=== PATIENT | male | born 1995 | race Caucasian/White ===

== ENCOUNTER 2016-12-07 20:24 | Inpatient (IN) | payer OTHER ==
[~2016-12-07] VITALS: Ht 182.9 cm; Wt 55.0 kg
--- NOTE | 2016-12-07 21:35 | DIAGNOSTIC IMAGING REPORT ---
CHEST ONE VIEW PORTABLE CLINICAL HISTORY: chest pain dyspnea COMPARISON STUDY: No previous studies for comparison. FINDINGS: Right-sided pneumothorax. Maximum pleural separation of the lower right apex at 3 cm No shift of the cardiomediastinal silhouette. Lungs otherwise appear clear. IMPRESSION: Right apical pneumothorax with a pleural separation of 3 cm. Electronically signed by: Adrian Baig M.D. 12/07/2016 9:34 PM Dictated Date/Time: 12/07/2016 9:33 PM
--- NOTE | 2016-12-07 22:05 | DIAGNOSTIC IMAGING REPORT ---
CHEST CT WITHOUT CONTRAST CT DOSE: 248.21 mGy.cm HISTORY: Pneumothorax eval of spontaneous pneumothorax TECHNIQUE: Multiaxial CT images of the chest were performed without contrast. COMPARISON: None. FINDINGS: The left lung is considered clear. No significant blebs are identified. There is approximately a 30-35% right-sided pneumothorax. Parenchymal pattern appears to be generally unremarkable. No major blebs within limitations of the a pneumothorax are present. There may be be a small bleb laterally best seen transaxial 16 Hilar and mediastinal regions are unremarkable. IMPRESSION: 1. 30-35% right-sided pneumothorax. 2. Possible very small bleb lateral aspect right pulmonary margin transaxial image 16 3. Otherwise negative study Electronically signed by: Adrian Baig M.D. 12/07/2016 10:04 PM Dictated Date/Time: 12/07/2016 10:01 PM
[2016-12-07] MEDS ORDERED: MoRPHine SULFATE 4 MG/ML 1 ML CARP\\VIAL IV STA (22:18)
[2016-12-07 22:26] LABS: BASO % 0.2 %; BASO ABS # 0.02 K/uL (0-0.2); COMPLETE YES; EOS % 0.3 %; HEMATOCRIT 41.4 % (42-52); IG% 0.2 %; LYMPH % 11.3 %; LYMPH ABS # 1.43 K/uL (1.2-3.4); MEAN CELL VOLUME 85.7 fL (80-100); MEAN CORPUSCULAR HEMOGLOBIN 31.1 pg (25-34); MEAN CORPUSCULAR HGB CONC 36.2 g/dl (32-36); MEAN PLATELET VOLUME 10.1 fL (7.4-10.4); MONO % 5.1 %; NEUT % 82.9 %; PLATELET COUNT 257 K/uL (130-400); RED BLOOD COUNT 4.83 M/uL (4.7-6.1); WHITE BLOOD COUNT 12.64 K/uL (4.8-10.8)
[2016-12-07] MEDS ORDERED: LORAZEPAM 2 MG/ML 1 ML VIAL IV STA (22:29)
[2016-12-07 22:36] LABS: INR 1.1 (0.9-1.1); PARTIAL THROMBOPLASTIN RATIO 0.9; PROTHROMBIN TIME (PATIENT) 11.8 SECONDS (9.0-12.0)
[2016-12-07 22:42] LABS: BLOOD UREA NITROGEN 16 mg/dl (7-18); CALCIUM 8.7 mg/dl (8.5-10.1); CARBON DIOXIDE 25 mmol/L (21-32); CHLORIDE 105 mmol/L (98-107); GLUCOSE 114 mg/dl (70-99); POTASSIUM 3.4 mmol/L (3.5-5.1); SODIUM 139 mmol/L (136-145)
[2016-12-07] MEDS ORDERED: ONDANSETRON INJ 2 MG/ML 2 ML VIAL IV PRN (23:30)
[2016-12-07] MEDS ORDERED: MoRPHine SULFATE 2 MG/ML CARP IV PRN (23:30)
[2016-12-07] MEDS ORDERED: HYDROCODONE/ACETAMOPHEN 5/325MG TAB PO PRN ×2 (23:30)
[2016-12-07] MEDS ORDERED: MoRPHine SULFATE 4 MG/ML 1 ML CARP\\VIAL IV PRN (23:30)
[2016-12-07] MEDS ORDERED: ACETAMINOPHEN 325 MG TAB PO PRN (23:30)
[2016-12-08] VITALS (13 sets, daily range): BP systolic 101–125; BP diastolic 58–82; PULSE 68–92; TEMP 36.5–37.2; O2SAT 96–100; Ht 182.9 cm; Wt 55.0 kg
--- NOTE | 2016-12-08 00:10 | EMERGENCY ROOM VISIT NOTE ---
History Report prepared by Laura: Sukumar Atwood Under the Supervision of: Dr. Danny Wu D.O. First contact with patient: 21:18 Chief Complaint: RIB PAIN Stated Complaint: FLANK PAIN/ SOB History of Present Illness The patient is a 21 year old male who presents to the Emergency Room with complaints of constant right sided rib pain beginning several hours prior to arrival. He describes the pain as pressure and currently rates his discomfort as a 4/10 in severity. The patient associates shortness of breath and a compression feeling in his right lung with today's symptoms. He states he was walking back from a debate convention, and he gradually felt increased pressure in his right chest and right rib area. The patient notes he got to a building where the paramedics came. He states at the building that he had a moment of dilated pupils and loss of vision, as well. The patient notes his pain is improving, but his discomfort worsens with movement. Source of History: patient Onset: several hours RN CLINICAL COORDINATOR Position: other (right sided rib) Symptom Intensity: 4/10 Quality: pressure Timing: constant Modifying Factors (Worsening): movement Associated Symptoms: + SOB, + chest pain (right sided pressure) Note: Associated symptoms: compression feeling in his right lung, resolved dilated pupils, resolved loss of vision. Review of Systems See HPI for pertinent positives & negatives. A total of 10 systems reviewed and were otherwise negative. Past Medical & Surgical Medical Problems: (1) No pertinent past medical history (2) Pneumonia (3) Pneumothorax Family History Patient reports no known family medical history. Social History Smoking Status: Never Smoker Housing Status: lives with roommate Occupation Status: [employer] student Current/Historical Medications No Active Prescriptions or Reported Meds Physical Exam Vital Signs Date Time Temp Pulse Resp B/P Pulse Ox O2 Delivery O2 Flow Rate FiO2 12/07/16 23:53 96 16 113/55 100 Nasal Cannula 2.0 12/07/16 23:01 111 20 129/80 100 Nasal Cannula 2.0 12/07/16 23:00 Nasal Cannula 2.0 12/07/16 22:45 121 20 132/60 99 Room Air 12/07/16 22:43 116 12/07/16 22:30 121 20 119/75 98 Room Air 12/07/16 20:34 36.8 80 18 132/71 100 Room Air Physical Exam CONSTITUTIONAL/VITAL SIGNS: Reviewed / noted above. GENERAL: Non-toxic in appearance. INTEGUMENTARY: Warm, dry, and [place]. HEAD: Normocephalic. EYES: without scleral icterus or trauma. ENT/OROPHARYNX: clear and moist. LYMPHADENOPATHY/NECK: Is supple without lymphadenopathy or meningismus. RESPIRATORY: Lungs clear and equal. CARDIOVASCULAR: Regular rate and rhythm. GI/ABDOMEN: Soft and nontender. No organomegaly or pulsatile mass. No rebound or guarding. Normal bowel sounds. EXTREMITIES: Warm and well perfused. BACK: No CVA tenderness. NEUROLOGICAL: Intact without focal deficits. PSYCHIATRIC: normal affect. MUSCULOSKELETAL: Normally developed with good muscle tone. Medical Decision & Procedures ER Provider Diagnostic Interpretation: Radiology results as stated below per my review and radiologist interpretation: CHEST ONE VIEW PORTABLE CLINICAL HISTORY: chest pain dyspnea COMPARISON STUDY: No previous studies for comparison. FINDINGS: Right-sided pneumothorax. Maximum pleural separation of the lower right apex at 3 cm No shift of the cardiomediastinal silhouette. Lungs otherwise appear clear. IMPRESSION: Right apical pneumothorax with a pleural separation of 3 cm. Electronically signed by: Adrian Baig M.D. 12/07/2016 9:[address] WITHOUT [address]AST CT DOSE: 248.21 mGy.cm HISTORY: Pneumothorax eval of spontaneous pneumothorax TECHNIQUE: Multiaxial CT images of the chest were performed without contrast. COMPARISON: None. FINDINGS: The left lung is considered clear. No significant blebs are identified. There is approximately a 30-35% right-sided pneumothorax. Parenchymal pattern appears to be generally unremarkable. No major blebs within limitations of the a pneumothorax are present. There may be be a small bleb laterally best seen transaxial 16 Hilar and mediastinal regions are unremarkable. IMPRESSION: 1. 30-35% right-sided pneumothorax. 2. Possible very small bleb lateral aspect right pulmonary margin transaxial image 16 3. Otherwise negative study Electronically signed by: Adrian Baig M.D. 12/07/2016 10:04 PM X ray results and stated below per my interpretation.' CXR Post Tube Thoracostomy The lung appears to be reexpanded. No obvious residual pneumothorax. Small kink in the catheter exterior to the chest wall was addressed. Laboratory Results 12/07/16 22:00 Red Blood Count 4.83, Mean Corpuscular Volume 85.7, Mean Corpuscular Hemoglobin 31.1, Mean Corpuscular Hemoglobin Concent 36.2, Mean Platelet Volume 10.1, Neutrophils (%) (Auto) 82.9, Lymphocytes (%) (Auto) 11.3, Monocytes (%) (Auto) 5.1, Eosinophils (%) (Auto) 0.3, Basophils (%) (Auto) 0.2, Neutrophils # (Auto) 10.47, Lymphocytes # (Auto) 1.43, Monocytes # (Auto) 0.65, Eosinophils # (Auto) 0.04, Basophils # (Auto) 0.02 12/07/16 22:00 Test 12/07/16 22:00 White Blood Count 12.64 K/uL (4.8-10.8) Red Blood Count 4.83 M/uL (4.7-6.1) Hemoglobin 15.0 g/dL (14.0-18.0) Hematocrit 41.4 % (42-52) Mean Corpuscular Volume 85.7 fL (80-100) Mean Corpuscular Hemoglobin 31.1 pg (25-34) Mean Corpuscular Hemoglobin Concent 36.2 g/dl (32-36) Platelet Count 257 K/uL (130-400) Mean Platelet Volume 10.1 fL (7.4-10.4) Neutrophils (%) (Auto) 82.9 % Lymphocytes (%) (Auto) 11.3 % Monocytes (%) (Auto) 5.1 % Eosinophils (%) (Auto) 0.3 % Basophils (%) (Auto) 0.2 % Neutrophils # (Auto) 10.47 K/uL (1.4-6.5) Lymphocytes # (Auto) 1.43 K/uL (1.2-3.4) Monocytes # (Auto) 0.65 K/uL (0.11-0.59) Eosinophils # (Auto) 0.04 K/uL (0-0.5) Basophils # (Auto) 0.02 K/uL (0-0.2) RDW Standard Deviation 39.2 fL (36.4-46.3) RDW Coefficient of Variation 12.4 % (11.5-14.5) Immature Granulocyte % (Auto) 0.2 % Immature Granulocyte # (Auto) 0.03 K/uL (0.00-0.02) Prothrombin Time 11.8 SECONDS (9.0-12.0) Prothromb Time International Ratio 1.1 (0.9-1.1) Activated Partial Thromboplast Time 23.7 SECONDS (21.0-31.0) Partial Thromboplastin Ratio 0.9 Anion Gap 9.0 mmol/L (3-11) Est Creatinine Clear Calc Drug Dose 91.7 ml/min Estimated GFR () 125.0 Estimated GFR (Non- 107.9 BUN/Creatinine Ratio 16.0 (10-20) Calcium Level 8.7 mg/dl (8.5-10.1) Troponin I < 0.015 ng/ml (0-0.045) Laboratory results as stated above per my review. Medications Administered Medications (Trade) Dose Ordered Sig/Jacqueline Route Start Time Stop Time Status Last Admin Dose Admin Morphine Sulfate (MoRPHine SULFATE INJ) 4 mg NOW STAT IV 12/07/16 22:18 12/07/16 22:19 DC 12/07/16 22:24 4 MG Lorazepam (Ativan Inj) 1 mg NOW STAT IV 12/07/16 22:29 12/07/16 22:30 DC 12/07/16 22:33 1 MG Procedure Tube Thoracostomy Indication: Pneumothorax Written consent was obtained after the risks and benefits were explained, including but not limited to cardiac/liver/lung injury, bleeding, scarring, infection, pain, and bone/joint/nerve damage. At this time, the risks of the procedure are less than the risks of NOT performing the procedure. A time out was taken and the correct patient and site identified. The patient was prepped and draped in the standard surgical fashion. 1% lidocaine without epinephrine was infused over the fourth intercostal space into the subcutaneous tissue. A 3 cm incision was made transversely in the mid axillary line over the fifth intercostal rib. Blunt dissection was done with a Mattie clamp to the area of the intercostal muscles; 1% lidocaine again was used for anesthesia in intercostal muscle and subpleural space. Blunt dissection was then done with the Mattie clamps into the pleural cavity over the rib. A small amount of air was noted upon entering the pleural cavity. The pleural cavity was digitally inspected to confirm that the pleural cavity had been entered. A 8.5 Indian thoracostomy tube was inserted in the superior/posterior portion of the pleural space. 1-0 silk suture was used to approximate the skin above the thoracostomy tube and then used to secure the thoracostomy tube. An occlusive dressing was then placed and the thoracostomy tube was hooked to the Pleur-evac suction. The patient tolerated the procedure well without complications. A postoperative x- ray was then performed which showed the thoracostomy tube in the correct position. ECG Indication: chest pain Rate (beats per minute): 73 Rhythm: normal sinus Findings: no ectopy, other (no acute injury) ED Course 2125: Previous medical records were reviewed. The patient was evaluated in room C11B. A complete history and physical examination was performed. 8: Ordered Morphine Sulfate 4 mg IV. 9: Ordered Ativan Inj 1 mg IV. 2310: I spoke to ECTOR Chaney (General Surgery) about the patient's case, and he will follow the patient for further evaluation. Medical Decision the differential was considered includes acute myocardial infarction, acute coronary syndrome, myocarditis, pericarditis, pericardial effusions /tamponade, esophageal perforation, pulmonary embolism, pneumonia, pneumothorax, cardiomyopathy, congestive heart, anemia , COPD/asthma exacerbation. This is a 21-year-old male who presents to the ED with a chief complaint of sudden right-sided chest pain while he was walking. He denies any past medical history. A chest x-ray reveals a right-sided pneumothorax. A CT scan of the chest reveals a 35% pneumothorax on the right with a small bleb. The patient reports right-sided chest pain is also a little shortness of breath. After written and verbal consent was obtained, the patient had a right-sided pigtail catheter chest tube placed with expansion of the pneumothorax. He tolerated the procedure well and had no complications. He was given morphine IV for discomfort and a milligram of IV Ativan for anxiety during his stay. I spoke with Dr. Loja who will admit the patient for continued inpatient care. Consults Time Called: [id number] Consulting Physician: ECTOR Chaney (General Surgery) Returned Call: [phone] I spoke to ECTOR Chaney (General Surgery) about the patient's case, and he will follow the patient for further evaluation. Impression Primary Impression: Pneumothorax, right Additional Impression: Spontaneous pneumothorax Scribe Attestation The scribe's documentation has been prepared under my direction and personally reviewed by me in its entirety. I confirm that the note above accurately reflects all work, treatment, procedures, and medical decision making performed by me. Departure Information Dispostion Being Evaluated [place] Surgeon [place] [facility] [place] Prescriptions No Active Prescriptions or Reported Meds Referrals No Doctor, Assigned (PCP) Problem Qualifiers
[2016-12-08] MEDS ORDERED: PATIENT'S ALLERGY INFO NEEDS ENTERED SCH (00:30)
--- NOTE | 2016-12-08 06:01 | DIAGNOSTIC IMAGING REPORT ---
CHEST ONE VIEW PORTABLE CLINICAL HISTORY: post chest tube pneumothorax COMPARISON STUDY: Several images same date FINDINGS: Placement of a small caliber right-sided chest tube. A very small residual right apical pneumothorax. Lungs otherwise are clear. IMPRESSION: Small caliber right chest tube placement. Very small residual right apical pneumothorax with a maximum pleural separation of 4 mm. Electronically signed by: Adrian Baig M.D. 12/08/2016 6:00 AM Dictated Date/Time: 12/08/2016 5:59 AM
--- NOTE | 2016-12-08 07:03 | DIAGNOSTIC IMAGING REPORT ---
CHEST ONE VIEW PORTABLE CLINICAL HISTORY: pneumothorax dyspnea COMPARISON STUDY: 12/07/2016 FINDINGS: Small caliber right chest tube in position. Very minimal residual right apical pneumothorax. Pleural separation remains at 4 mm. Lungs otherwise are clear. IMPRESSION: Minimal residual right apical pneumothorax. Maximum pleural separation remains at 4 mm. Electronically signed by: Adrian Baig M.D. 12/08/2016 7:02 AM Dictated Date/Time: 12/08/2016 7:01 AM
[2016-12-08] MEDS: IBUPROFEN 600 MG TAB PO PRN ×2 (07:14→15:35)
--- NOTE | 2016-12-08 09:27 | History and Physical ---
History & Physical Date & Time of Service: Dec 08, 2016 at 09:25 Chief Complaint: Pneumothorax Primary Care Physician: No Doctor, Assigned History of Present Illness pt with spontaneous right chest pain/sob. found to have incidental ptx. no trauma. Past Medical/Surgical History Medical Problems: (1) Pneumonia Status: Resolved Family History Patient reports no known family medical history. Social History Smoking Status: Never Smoker Occupational Status: [employer] student Allergies Coded Allergies: Cat Dander (Unverified Allergy, Mild, RASH, 12/08/16) pt states reddened and watery eyes Dog Dander (Unverified Allergy, Mild, RASH, 12/08/16) pt states reddened and watery eyes POLLEN (Unverified Allergy, Mild, RASH, 12/08/16) pt states reddened and watery eyes Home Medications No Active Prescriptions or Reported Meds Review of Systems Respiratory: + cough, + shortness of breath Physical Exam Vital Signs Date Time Temp Pulse Resp B/P Pulse Ox O2 Delivery O2 Flow Rate FiO2 12/08/16 07:35 37.1 87 14 108/68 96 Room Air 12/08/16 07:15 100 Room Air 12/08/16 03:02 36.8 70 17 125/64 99 Nasal Cannula 2.0 12/08/16 02:28 37.2 92 16 105/58 100 Nasal Cannula 2.0 12/08/16 01:22 37.2 86 16 122/82 100 Nasal Cannula 2.0 12/08/16 01:03 100 Nasal Cannula 2.0 12/08/16 00:50 37.2 68 16 118/61 100 Nasal Cannula 2.0 12/08/16 00:20 Nasal Cannula 2.0 12/08/16 00:20 37.1 89 16 106/61 100 Nasal Cannula 2.0 12/08/16 00:20 100 Nasal Cannula 2.0 12/07/16 23:53 96 16 113/55 100 Nasal Cannula 2.0 12/07/16 23:01 111 20 129/80 100 Nasal Cannula 2.0 12/07/16 23:00 Nasal Cannula 2.0 12/07/16 22:45 121 20 132/60 99 Room Air 12/07/16 22:43 116 12/07/16 22:30 121 20 119/75 98 Room Air 12/07/16 20:34 36.8 80 18 132/71 100 Room Air General Appearance: no apparent distress Head: normocephalic, atraumatic Eyes: PERRL, EOMI ENT: hearing grossly normal Neck: supple, no adenopathy Respiratory/Chest: normal breath sounds Abdomen/GI: non tender, soft Extremities/Musculoskelatal: no pedal edema Neurologic/Psych: alert, oriented x 3 Skin: normal color, warm/dry Diagnostics Laboratory Results Results Past 24 Hours Test 12/07/16 22:00 Range/Units White Blood Count 12.64 4.8-10.8 K/uL Red Blood Count 4.83 4.7-6.1 M/uL Hemoglobin 15.0 14.0-18.0 g/dL Hematocrit 41.4 42-52 % Mean Corpuscular Volume 85.7 80-100 fL Mean Corpuscular Hemoglobin 31.1 25-34 pg Mean Corpuscular Hemoglobin Concent 36.2 32-36 g/dl Platelet Count 257 130-400 K/uL Mean Platelet Volume 10.1 7.4-10.4 fL Neutrophils (%) (Auto) 82.9 % Lymphocytes (%) (Auto) 11.3 % Monocytes (%) (Auto) 5.1 % Eosinophils (%) (Auto) 0.3 % Basophils (%) (Auto) 0.2 % Neutrophils # (Auto) 10.47 1.4-6.5 K/uL Lymphocytes # (Auto) 1.43 1.2-3.4 K/uL Monocytes # (Auto) 0.65 0.11-0.59 K/uL Eosinophils # (Auto) 0.04 0-0.5 K/uL Basophils # (Auto) 0.02 0-0.2 K/uL RDW Standard Deviation 39.2 36.4-46.3 fL RDW Coefficient of Variation 12.4 11.5-14.5 % Immature Granulocyte % (Auto) 0.2 % Immature Granulocyte # (Auto) 0.03 0.00-0.02 K/uL Prothrombin Time 11.8 9.0-12.0 SECONDS Prothromb Time International Ratio 1.1 0.9-1.1 Activated Partial Thromboplast Time 23.7 21.0-31.0 SECONDS Partial Thromboplastin Ratio 0.9 Sodium Level 139 136-145 mmol/L Potassium Level 3.4 3.5-5.1 mmol/L Chloride Level 105 98-107 mmol/L Carbon Dioxide Level 25 21-32 mmol/L Anion Gap 9.0 3-11 mmol/L Blood Urea Nitrogen 16 7-18 mg/dl Creatinine 1.00 0.60-1.40 mg/dl Est Creatinine Clear Calc Drug Dose 91.7 ml/min Estimated GFR () 125.0 Estimated GFR (Non- 107.9 BUN/Creatinine Ratio 16.0 10-20 Random Glucose 114 70-99 mg/dl Calcium Level 8.7 8.5-10.1 mg/dl Troponin I < 0.015 0-0.045 ng/ml other (pneumothorax/small bleb) Impression Assessment and Plan 1. spontaneous pneumothorax/small bleb clinically doing ok continues to have small apical ptx chest tube to 20 cm wall suction recheck cxr tomorrow continue wall suction for now. Advanced Directives Existing Living Will: No Existing Power of Community Ambassador: No VTE Prophylaxis VTE Risk Assessment Done? Y/N: Yes Risk Level: Low
[2016-12-09] VITALS (10 sets, daily range): BP systolic 106–137; BP diastolic 58–80; PULSE 69–100; TEMP 36.5–37.2; O2SAT 94–100
--- NOTE | 2016-12-09 07:30 | DIAGNOSTIC IMAGING REPORT ---
CHEST ONE VIEW PORTABLE CLINICAL HISTORY: pneumothorax COMPARISON STUDY: 12/08/2016 FINDINGS: Lungs are clear. No residual pneumothorax. Right-sided small caliber chest tube in position laterally IMPRESSION: No evidence for residual pneumothorax Electronically signed by: Adrian Baig M.D. 12/09/2016 7:29 AM Dictated Date/Time: 12/09/2016 7:28 AM
[2016-12-09] MEDS ORDERED: ROCURONIUM BROMIDE 10 MG/ML 5 ML VIAL ONE (10:55)
[2016-12-09] MEDS ORDERED: PROPOFOL IV EMULSION 10 MG/ML 20 ML VIAL IV ONE ×2 (10:55→12:23)
[2016-12-09] MEDS ORDERED: ONDANSETRON INJ 2 MG/ML 2 ML VIAL ONE ×2 (10:55→12:23)
[2016-12-09] MEDS ORDERED: NEOSTIGMINE METHYLSULFATE 5 MG/5 ML SYR ONE (10:55)
[2016-12-09] MEDS ORDERED: GLYCOPYRROLATE INJ 0.2 MG/ML VIAL ONE ×2 (10:55→12:53)
[2016-12-09] MEDS ORDERED: MIDAZOLAM HCL 1 MG/ML 2ML VIAL ONE (10:55)
[2016-12-09] MEDS ORDERED: LIDOCAINE HCL 2% 2 ML VIAL (20MG/ML) ONE (10:55)
[2016-12-09] MEDS ORDERED: DEXAMETHASONE SOD INJ 4 MG/ML VIAL ONE (10:55)
[2016-12-09] MEDS ORDERED: FENTANYL CITRATE INJ 50 MCG/1 ML 2 ML VIAL ONE ×2 (10:55→12:23)
--- NOTE | 2016-12-09 11:01 | History & Physical Bridge Note ---
H&P Re-Evaluation Bridge Note: I have examined the patient, reviewed the History & Physical and in the interval since the performance of the History & Physical I have noted the following changes of clinical significance: No changes noted
[2016-12-09] MEDS ORDERED: SODIUM CHLORIDE 0.9% PF 50 ML VIAL ONE (11:07)
[2016-12-09] MEDS ORDERED: BUPIVACAINE LIPOSOME 1/3% 266 MG/20 ML VIAL INFIL ONE (11:07)
[2016-12-09] MEDS ORDERED: LABETALOL HCL IV 5 MG/ML 20ML IV PRN (11:30)
[2016-12-09] MEDS ORDERED: MEPERIDINE HCL 25 MG/ML CARP IV PRN (11:30)
[2016-12-09] MEDS ORDERED: ONDANSETRON INJ 2 MG/ML 2 ML VIAL IV PRN ×2 (11:30→13:15)
[2016-12-09] MEDS ORDERED: EpHEDrine SULFATE INJ 50 MG/ML AMP IV PRN (11:30)
[2016-12-09] MEDS ORDERED: HYDROmorphone INJ 1 MG/ML SYR IV PRN (11:30)
[2016-12-09] MEDS ORDERED: FENTANYL CITRATE INJ 50 MCG/1 ML 2 ML VIAL IV PRN (11:30)
[2016-12-09] MEDS ORDERED: ATROPINE SULFATE 0.1 MG/ML 5ML SYR IV PRN (11:30)
[2016-12-09] MEDS ORDERED: LARYING-O-JET KIT (LTA) EXT ONE ×2 (12:24)
[2016-12-09] MEDS ORDERED: OXYCODONE HCL IR 5 MG TAB (IMMEDIATE RELEASE) PO PRN (13:15)
[2016-12-09] MEDS ORDERED: MoRPHine SULFATE 2 MG/ML CARP IV PRN (13:15)
--- NOTE | 2016-12-09 13:53 | DIAGNOSTIC IMAGING REPORT ---
CHEST ONE VIEW PORTABLE HISTORY: s/p bleb stapling COMPARISON: Chest 12/09/2016. FINDINGS: The right-sided pleural pigtail catheter has been replaced with a right-sided chest tube. Right lung apex debbie are noted. There is a small right apical pneumothorax with a pleural gap of 1 cm. This has increased in size. Patchy density within the right lung apex medially may be due to postoperative change. The left lung is clear. The heart is normal in size. No pleural effusions. IMPRESSION: Right-sided chest tube terminates in the right lung apex. There is a small right apical pneumothorax. Electronically signed by: Jj Medina M.D. 12/09/2016 1:52 PM Dictated Date/Time: 12/09/2016 1:50 PM
[2016-12-09] MEDS ORDERED: CEFAZOLIN SOD 2000 MG in DEXTROSE 5% 50ML IV SCH (14:00)
[2016-12-09] MEDS ORDERED: CEFAZOLIN IV 2,000 MG in DEXTROSE 5% 50ML 100 ML IV SCH (14:00)
--- NOTE | 2016-12-09 14:00 | Anesthesiology Progress Note ---
Anesthesia Post Op Note Date & Time Dec 09, 2016 at 14:00 Vital Signs Pain Intensity: 0 Vital Signs Past 12 Hours Date Time Temp Pulse Resp B/P Pulse Ox O2 Delivery O2 Flow Rate FiO2 12/09/16 13:55 78 18 142/82 100 Nasal Cannula 2 12/09/16 13:45 94 21 131/79 100 Mask 10 12/09/16 13:35 101 21 131/81 100 Mask 10 12/09/16 13:28 36.0 76 15 126/79 100 Mask 10 12/09/16 11:10 36.9 83 16 138/73 100 Room Air 12/09/16 08:41 100 Room Air 12/09/16 07:45 36.5 69 14 112/66 100 Room Air 12/09/16 07:15 Room Air Notes Mental Status: alert / awake / arousable, participated in evaluation Pt Amnestic to Procedure: Yes Nausea / Vomiting: adequately controlled Pain: adequately controlled Airway Patency, RR, SpO2: stable & adequate BP & HR: stable & adequate Hydration State: stable & adequate Anesthetic Complications: no major complications apparent
[2016-12-09] MEDS: D5W AND 1/2NSS 1,000 ML IV SCH ×2 (14:30→23:41)
[2016-12-09] MEDS: KETOROLAC TROMETHAMINE 15 MG/ML VIAL IV. SCH ×2 (14:37→21:31)
[2016-12-09] MEDS: METOCLOPRAMIDE HCL INJ 5 MG/ML 2 ML VIAL IV. SCH ×2 (14:38→21:31)
--- NOTE | 2016-12-09 14:59 | SURGICAL CONSULTATION ---
DATE OF CONSULTATION: 12/09/2016 REASON FOR CONSULTATION: Spontaneous right pneumothorax with blebs. 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 This happened yesterday and he was admitted to Dr. Ton Loja's service. Dr. Young placed a small catheter in the patient's chest; however, he still has a small pneumothorax. I do not see an air leak. 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 I was asked to evaluate him from a thoracic surgery standpoint. The patient really has no other medical problems. He is physically active. He has never smoked. His family lives in [place], [place]. His mother is a family service caseworker there. PAST MEDICAL HISTORY: Pneumonia in the past. PAST SURGICAL HISTORY: None. MEDICATIONS: None. ALLERGIES: No known drug allergies. SOCIAL HISTORY: The patient will be graduating in August with a degree in [employer]. He does not smoke or use alcohol. FAMILY MEDICAL HISTORY: There is no history of spontaneous pneumothorax or pulmonary problems in his history. REVIEW OF SYSTEMS: Upon the time this occurred, the patient was fine. He had no night sweats. No productive cough. No upper respiratory infection symptoms. He had not been traveling recently in a plane. He had not been diving. He knows no trauma associated with this. He had no GI or complaints. He has no hearing or visual abnormalities. He had no neurologic events and had no skin breakdown. However, he did have coughing when this happened, had pressure in his right chest, which he tends to be understanding today, although his mother states he is very stoic and this is the "worse pain he ever had". PHYSICAL EXAMINATION: GENERAL: This is a 6 feet 1 inch and 120-pound male who is awake, alert, oriented. HEENT: His extraocular movements are intact. His pupils are equal, round and reactive. Sclerae are anicteric. He has no nasolabial flattening. His tongue is midline. Teeth are in good repair. NECK: Supple. He has no tracheal shifting or neck vein distention. He has no thyromegaly. LUNGS: He did have decreased breath sounds a bit more on the right, especially in the anterior upper portion of his chest than the left. HEART: He has a regular rate and rhythm of his heart. ABDOMEN: Flat, soft, nontender with no surgical incisions. Good femoral and good peripheral pulses. He has no joint effusions. NEUROLOGIC: He is awake, alert and oriented. ASSESSMENT: He has spontaneous pneumothorax with small blebs in the right apex. PLAN: Right thoracoscopy with apical bleb resection. DISCUSSION: I had a long talk with the patient's mother who has a medical background as well as the patient. He is an intelligent young man and asked pointed questions. We discussed risk and benefits and also alternative treatment measures such as observation; however, the fact that matter is the patient is able to speak Pal[place]an and Nepalese and will be doing quite a bit of flying in the future. We discussed this and my concerns about nonoperative management. He has a small bleb on the right with one small subcentimeter bleb posteriorly. There is also another one more superior. At any rate, with the blebs noted on the right, I think offering him a thoracoscopy is indicated. We will proceed with this later today.
[2016-12-09] MEDS: ACETAMINOPHEN IV 1,000 MG in EMPTY BAG 0 ML IV SCH ×2 (15:42→23:40)
--- NOTE | 2016-12-09 16:19 | OPERATIVE REPORT ---
DATE OF OPERATION: 12/09/2016 PREOPERATIVE DIAGNOSES: 1. Spontaneous pneumothorax. 2. Apical blebs. POSTOPERATIVE DIAGNOSES: 1. Same. 2. Bleb superior segment, right lower lobe. SURGEON: Kehinde Marsh MD CANDLE MOLDER: ELIZABETH Morris PROCEDURES: Right thoracoscopy with wedge resection of right apex and superior segment right lower lobe. ANESTHESIA: General anesthesia endotracheal intubation. 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 He had a chest tube in place with a small leak this morning. His lung was expanded, but the CT scan showed he did have some apical blebs. I did not see one in the superior segment of the right lower lobe and a small on the left. I had a long discussion with the patient and his mother who is a nurse. We discussed in detail conservative management versus surgical management with stapling of the apical blebs. They discussed it among themselves and called back that they would like to proceed with surgery. In the early afternoon of 12/09/2016, the patient underwent an uncomplicated thoracoscopy. We did CO2 insufflation with a single lumen tube and used two 5 mm ports and 12 mm port. He tolerated it well with no air leak at the conclusion of the case. The only thing of note is that we did see some small bullae/blebs on the superior segment of the right lower lobe which were wedged out. The patient had no air leak at the conclusion of the case. DESCRIPTION OF PROCEDURE: The patient was brought to the operating room and laid in supine position. General anesthesia induced and endotracheal intubation was performed with a single lumen tube. There was no arterial line and no Lopez catheter. The patient was placed in left lateral decubitus position. We used a very small volumes and I removed his pigtail catheter. He was prepped and draped in usual sterile fashion after appropriate timeout had been called and antibiotics and given, I made a 5 mm incision in the area of his pigtail catheter. A 5 mm port was then placed and CO2 was insufflated. Likewise, posteriorly in the auscultatory triangle, I placed another 5 mm port. I then at about the seventh interspace just anterior to the mid axillary line about 12 mm incision was made and 12 mm port was placed. There was a single adhesion which was lysed using a hooked cautery. The apex did look abnormal. I grasped this and fired and removed the abnormal area by firing Endo-MIRIAM stapler several times and pulling this rather long but thin portion out. I then closely inspected the lung and saw the bulla in the superior segment of the lower lobe and wedged out a very small area here of the lung and handed off. We then placed the patient in Trendellenberg position, filled the chest with saline and inflated the lung and I simply did not see any leaking. A 266 mg of Exparel, 60 mL of normal saline injected for an intercostal block intrathoracically under thoracoscopic guidance from the 2nd to the 11th rib. We did this above the rib to avoid bleeding. A 24-Swedish chest tube was then directed towards the apex to the 7th interspace incision. This was held in place with heavy silk suture. A single heavy Vicryl suture was used to close the muscle layer of this 12 mm incision. A 4-0 Monocryl was used to close the skin of all 3 thoracoscopy ports. He tolerated it well, was extubated in the room with negligible blood loss. I attest to the content of the Intraoperative Record and any orders documented therein. Any exceptio ns are noted below.
[2016-12-09] MEDS: DOCUSATE SODIUM 100 MG CAP PO SCH (21:30)
[2016-12-10 04:12] VITALS: BP 104/64; PULSE 85; TEMP 36.9; O2SAT 95
[2016-12-10] MEDS: KETOROLAC TROMETHAMINE 15 MG/ML VIAL IV. SCH ×2 (05:34→14:22)
[2016-12-10] MEDS: METOCLOPRAMIDE HCL INJ 5 MG/ML 2 ML VIAL IV. SCH (05:34)
[2016-12-10 07:07] VITALS: BP 113/72; PULSE 80; TEMP 36.9; O2SAT 97
--- NOTE | 2016-12-10 07:27 | DIAGNOSTIC IMAGING REPORT ---
CHEST ONE VIEW PORTABLE CLINICAL HISTORY: s/p bleb stapling pneumothorax COMPARISON STUDY: 12/09/2016 FINDINGS: Small right apical pneumothorax slightly increased in volume from the prior study. Maximum apical pleural separation is 2.6 cm. Lungs otherwise are clear. Message chest tube is unchanged in location. IMPRESSION: Small right apical pneumothorax slightly increased in pleural separation compared to the prior study Electronically signed by: Adrian Baig M.D. 12/10/2016 7:26 AM Dictated Date/Time: 12/10/2016 7:25 AM
[2016-12-10] MEDS: IBUPROFEN 600 MG TAB PO PRN (07:44)
[2016-12-10] MEDS: ACETAMINOPHEN IV 1,000 MG in EMPTY BAG 0 ML IV SCH (07:44)
--- NOTE | 2016-12-10 07:59 | Anesthesiology Progress Note ---
Anesthesia Post Op Note Date & Time Dec 10, 2016 at 07:59 Vital Signs Pain Intensity: 4.0 Vital Signs Past 12 Hours Date Time Temp Pulse Resp B/P Pulse Ox O2 Delivery O2 Flow Rate FiO2 12/10/16 07:07 36.9 80 18 113/72 97 Room Air 12/10/16 04:12 36.9 85 16 104/64 95 Room Air 12/09/16 23:45 Room Air 12/09/16 23:08 36.9 94 16 117/70 96 Room Air 12/09/16 21:30 37.2 88 16 137/58 95 Room Air 12/09/16 20:00 Room Air Notes Mental Status: alert / awake / arousable, participated in evaluation Pt Amnestic to Procedure: Yes Nausea / Vomiting: adequately controlled Pain: adequately controlled Airway Patency, RR, SpO2: stable & adequate BP & HR: stable & adequate Hydration State: stable & adequate Anesthetic Complications: no major complications apparent
[2016-12-10] MEDS ORDERED: ENOXAPARIN 40 MG/0.4 ML SYR SQ SCH (09:00)
[2016-12-10] MEDS: DOCUSATE SODIUM 100 MG CAP PO SCH (09:17)
[2016-12-10] MEDS ORDERED: CEFAZOLIN SOD 1 GM VIAL ONE (10:25)
[2016-12-10 12:07] VITALS: BP 121/64; PULSE 81; TEMP 37; O2SAT 96
[2016-12-10] MEDS ORDERED: CLC100 PO (13:13)
[2016-12-10] MEDS ORDERED: MTR600X PO (13:13)
[2016-12-10] MEDS ORDERED: OXYC-57 PO (13:13)
[2016-12-10] MEDS ORDERED: TYL325X PO (13:13)
--- NOTE | 2016-12-10 13:17 | Discharge Instructions ---
Discharge Instructions Date of Service Dec 10, 2016. Admission Reason for Admission: Pneumothorax Discharge Discharge Diagnosis / Problem: Pneumothorax Discharge Goals Goal(s): Decrease discomfort, Learn about illness Activity Recommendations Activity Limitations: as noted below Lifting Limitations: none 1. Do not fly or SCUBA dive until cleared to do so by Dr. Marsh. 2. Leave dressing on for 3 days, then you may shower and clean incisions with soap and water. No tub baths. 3. Do not take tylenol if taking percocet. 4. Do not drive if taking percocet. . Instructions / Follow-Up Instructions / Follow-Up 1. Office appointment with Dr. Marsh in 1 week. Office will call you with date and time of appointment. You will need a chest x-ray prior to appointment (you may get x-ray the day before appointment if necessary) Current Hospital Diet Patient's current hospital diet: Regular Diet Discharge Diet Recommended Diet: Regular Diet Procedures Procedures Performed: Right Video Assisted Thoracoscopy with Bleb Resection Pending Studies Studies pending at discharge: no Medical Emergencies . Who to Call and When: Medical Emergencies: If at any time you feel your situation is an emergency, please call 911 immediately. . Non-Emergent Contact Non-Emergency issues call your: Surgeon Call Non-Emergent contact if: you have a fever, your pain is not controlled, wound has increased drainage . "Provider Documentation" section prepared by Luis Mgiuel Zelaya. VTE Core Measure Inpt VTE Proph given/why not?: Enoxaparin (Lovenox)SQ
--- NOTE | 2016-12-10 14:01 | DIAGNOSTIC IMAGING REPORT ---
CHEST ONE VIEW PORTABLE CLINICAL HISTORY: chest tube removal COMPARISON STUDY: 12/10/2016 FINDINGS: The cardiac and mediastinal contours remain stable. Postsurgical changes are present within the right upper lobe. There is been interval removal right-sided chest tube. There is trace subcutaneous emphysema on the right. There is no focal pulmonary consolidation. There are no pleural effusions. There is a 12 mm right apical pneumothorax.[ IMPRESSION: 1. 12 mm right apical pneumothorax 2. Interval removal of the right-sided chest tube Electronically signed by: Justyn Bhardwaj M.D. 12/10/2016 2:00 PM Dictated Date/Time: 12/10/2016 1:58 PM
[2016-12-10 14:19] VITALS: BP 121/64; PULSE 81; TEMP 37; O2SAT 96
--- NOTE | 2016-12-10 14:28 | DISCHARGE SUMMARY ---
DATE OF DISCHARGE: 12/10/2016. DISCHARGE DIAGNOSES: Spontaneous right pneumothorax. 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 He was brought to the Emergency Room and was found to have a significant right pneumothorax and Dr. Khang Loja inserted a pigtail catheter. With resolution of his pneumothorax he had a small air leak the next day. I reviewed his CT scan and indeed he did have 2 or 3 small blebs in the apex of the right. I had a long discussion with the patient and his mother who is a nurse. I have explained that we could treat this conservatively and remove his pleural catheter when his leak stopped which would be at least be another 24-48 hours or we could take him to the operating room and do a wedge resection and if there was no air leak we can discontinue the tube the following morning and sent him out. They deliberated about this and talked to the patient's father and came back and stated they would like to proceed with the surgery. On 12/09/2016 we did an uncomplicated right thoracoscopy with wedge resection of not only the right upper lobe apex but also superior segment of the lower lobe which had some small blebs. We had no air leak at the time of surgery and there was really no bleeding. The chest tube was left to alternate between water seal and suction overnight. He did have a small apical pneumothorax, but I think some of this may have been due to incomplete expansion of the lung due to our resection. At any rate, he did quite well from a pain standpoint. He was ambulating in the hallway. He is tolerating a regular diet. He was discharged home on postop day 1. I will see him back in the office next week to go over the final path results as well as review his chest x-ray at that time. They are to call me should any problems arise.
== END 2016-12-10 14:35 | disposition home or self-care (01) | DRG 168 ==
LOC: ENRESERVDT → ENRESERVTM → C.EDC 20:25 → C.MSW 23:22
PROVIDERS: ADMIT Surgery; ATTEND Surgery
PROC: 0BBF4ZX Excision of Right Lower Lung Lobe, Percutaneous Endoscopic Approach, Diagnostic (ICD-10-PCS; principal; 2016-12-09 11:00)
DX: J93.83 Other pneumothorax (principal); Z91.048 Other nonmedicinal substance allergy status; Z87.01 Personal history of pneumonia (recurrent)

== ENCOUNTER → 2016-12-16 | Outpatient (CLI) | payer OTHER ==
[~2016-12-16] MED LIST: CLC100 PO; MTR600X PO; OXYC-57 PO; TYL325X PO
--- NOTE | 2016-12-16 11:15 | DIAGNOSTIC IMAGING REPORT ---
TWO VIEW CHEST CLINICAL HISTORY: Spontaneous pneumothorax. FINDINGS: PA and lateral chest radiographs are compared to study dated 12/10/2016. The cardiomediastinal silhouette is unremarkable. Suture material projects over the right apex. There is a trace residual right apical pneumothorax with approximate 6 mm of apical pleural separation. The lungs and pleural spaces are clear. No left-sided pneumothorax is seen. The bony thorax appears intact. IMPRESSION: 1. Trace persistent right apical pneumothorax. 2. The lungs are clear. Electronically signed by: Peter Sadler M.D. 12/16/2016 11:14 AM Dictated Date/Time: 12/16/2016 11:12 AM
== END | disposition home or self-care (01) ==
LOC: C.RAD 10:53
PROVIDERS: ATTEND Surgery
DX: J93.83 Other pneumothorax (principal)